=== PATIENT | female | born 1990 | race Caucasian/White ===

== ENCOUNTER 2017-10-11 08:30 | Emergency (ER) | payer SELFPAY ==
--- NOTE | 2017-10-11 08:40 | EDM.PDOC ---
ED HPI GENERAL MEDICAL PROBLEM - General Stated Complaint: SORE MUSCLES Time Seen by Provider: 10/11/17 09:00 - History of Present Illness INITIAL COMMENTS - FREE TEXT/NARRATIVE: HISTORY AND PHYSICAL: History of present illness: The patient is a 26-year-old female who has been followed and worked up by Dr. Richardson in the clinic for abdominal pain and her testing previously included a gallbladder ultrasound on September 26 that was negative a nuclear medicine scan on September 27 which revealed an ejection fraction of 4% and a CT scan of the abdomen and pelvis on September 30 which revealed no findings except for colonic fecal retention; the patient presents to the ER today after being told by Dr. Richardson she needed to be on antibiotics for 2 weeks and then she would eventually need her gallbladder removed. She is currently on levofloxacin and Flagyl. The patient states that her pain in the right upper quadrant is only when she eats and she's been trying to push hydration 8 small meals. Patient said she has had a low-grade fever of 99 and nothing higher than that and has had body aches and chills for the last day or so and all of her joints are hurting her today. She says that she feels like her hands are swollen but they are better currently in the ED and that all of her joints are achy and sore not any one specific joint. Joints are not hot red or swollen but she feels very achy overall. She has been avoiding the heat and has no specific muscle pain. She is not weak in any one specific area but feels drained. She does not have a cough chest pain shortness of breath vomiting but has had loose stools since her gallbladder problems started. She's had no urinary complaints and she denies as she has normal periods and her has a vasectomy. Review of systems: As per history of present illness and below otherwise all systems reviewed and negative. Past medical history: As per history of present illness and as reviewed below otherwise noncontributory. Surgical history: As per history of present illness and as reviewed below otherwise noncontributory. Social history: No reported history of drug or alcohol abuse. Family history: As per history of present illness and as reviewed below otherwise noncontributory. Physical exam: General: Well-developed well-nourished female who is nontoxic and vital signs are reviewed by me. Patient moves easily in the ED without distress. HEENT: Atraumatic, normocephalic, pupils reactive, negative for conjunctival pallor or scleral icterus, mucous membranes moist, throat clear, neck supple, nontender, trachea midline. Lungs: Clear to auscultation, breath sounds equal bilaterally, chest nontender. Heart: S1S2, regular, negative for clicks, rubs, or JVD. Abdomen: Soft, nondistended, minimal tenderness in the right upper quadrant and epigastric area without rebound or guarding. Bowel sounds are hypoactive Negative for masses or hepatosplenomegaly. Negative for costovertebral tenderness. Pelvis: Deferred Genitourinary: Deferred. Rectal: Deferred. Extremities: Atraumatic, negative for cords or calf pain. Neurovascular unremarkable. Knees ankles elbows shoulder joints have all been inspected and there is no visible evidence of any swelling erythema warmth or bony deformities. Patient does have discomfort with palpation of these joints areas but there is no specific one area of discomfort. She can range of motion and move without difficulty or assistance. Neuro: Awake, alert, oriented. Cranial nerves II through XII unremarkable. Cerebellum unremarkable. Motor and sensory unremarkable throughout. Exam nonfocal. Diagnostics: CBC CMP magnesium CPK CRP sedimentation rate UA lactic acid Therapeutics: Patient has allergies to Toradol and tramadol and took Victoria prior to coming here. 1015: Dr. Richardson is aware of all testing results and my clinical findings and the patient was also informed of these testing results and my conversation with Dr. Richardson. I will recommend continuing antibiotics pushing hydration and follow -up with her in the clinic. Impression: Bodyaches/joint pain/malaise with history of biliary dyskinesia stable Definitive disposition and diagnosis as appropriate pending reevaluation and review of above. bodyaches Pain Score (Numeric/FACES): 8 - Related Data Allergies Allergy/AdvReac Type Severity Reaction Status Date / Time aspirin Allergy Anaphylactic Verified 10/11/17 08:44 Shock ketorolac [From Toradol] Allergy Anaphylactic Verified 10/11/17 08:44 Shock morphine Allergy Nausea and Verified 10/11/17 08:44 Vomiting tramadol Allergy Swelling Verified 10/11/17 08:44 Home Meds: Home Meds Hydrocodone/Acetaminophen [Hydrocodon-Acetaminoph 2.5-325] 1 tab PO Q6HR [History] Levofloxacin 750 mg PO BID 10/11/17 [History] Omeprazole 20 mg PO DAILY 10/11/17 [History] metroNIDAZOLE [Flagyl] 1 tab PO Q6HR 10/11/17 [History] ED ROS GENERAL - Review of Systems Review Of Systems: ROS reveals no pertinent complaints other than HPI. ED EXAM, GENERAL - Physical Exam Exam: See Below (See dictation) Course - Vital Signs Last Recorded V/S: Last Vital Signs Temp 36.0 C 10/11/17 08:46 Pulse 87 10/11/17 08:46 Resp 18 10/11/17 08:46 BP 132/81 10/11/17 08:46 Pulse Ox 97 10/11/17 08:46 - Orders/Labs/Meds Orders: Active Orders 24 hr Category Date Time Status UA W/MICROSCOPIC [URIN] Stat Lab 10/11/17 08:37 Ordered Labs: Laboratory Tests 10/11/17 10/11/17 10/11/17 Range/Units 08:37 09:25 09:25 WBC 8.15 (4.0-11.0) K/uL RBC 5.13 (4.30-5.90) M/uL Hgb 15.0 (12.0-16.0) g/dL Hct 44.0 (36.0-46.0) % MCV 85.8 (80.0-98.0) fL MCH 29.2 (27.0-32.0) pg MCHC 34.1 (31.0-37.0) g/dL RDW Std Deviation 42.6 (28.0-62.0) fl RDW Coeff of Jeff 14 (11.0-15.0) % Plt Count 267 (150-400) K/uL MPV 9.70 (7.40-12.00) fL Neut % (Auto) 51.2 (48.0-80.0) % Lymph % (Auto) 37.2 (16.0-40.0) % [place] % (Auto) 9.6 (0.0-15.0) % Eos % (Auto) 1.6 (0.0-7.0) % Baso % (Auto) 0.4 (0.0-1.5) % Neut # (Auto) 4.2 (1.4-5.7) K/uL Lymph # (Auto) 3.0 H (0.6-2.4) K/uL [place] # (Auto) 0.8 (0.0-0.8) K/uL Eos # (Auto) 0.1 (0.0-0.7) K/uL Baso # (Auto) 0.0 (0.0-0.1) K/uL Nucleated RBC % 0.0 /100WBC Nucleated RBCs # 0 K/uL ESR 1 (0-19) mm/hr Lactate (0.20-2.00) mmol/L Sodium 142 (136-145) mmol/L Potassium 3.9 (3.5-5.1) mmol/L Chloride 107 (98-107) mmol/L Carbon Dioxide 25.1 (21.0-32.0) mmol/L BUN 11 (7.0-18.0) mg/dL Creatinine 0.8 (0.6-1.0) mg/dL Est Cr Clr Drug Dosing 90.41 mL/min Estimated GFR (MDRD) > 60.0 ml/min Glucose 93 (74-106) mg/dL Calcium 9.2 (8.5-10.1) mg/dL Magnesium 1.8 (1.8-2.4) mg/dL Total Bilirubin 0.2 (0.2-1.0) mg/dL AST 15 (15-37) IU/L ALT 20 (14-63) IU/L Alkaline Phosphatase 40 L (46-116) U/L Creatine Kinase 55 (26-308) U/L C-Reactive Protein <0.20 (0.00-0.90) mg/dL Total Protein 6.7 (6.4-8.2) g/dL Albumin 3.7 (3.4-5.0) g/dL Globulin 3.0 (2.0-3.5) g/dL Albumin/Globulin Ratio 1.2 L (1.3-2.8) Urine Color YELLOW Urine Appearance SLT CLOUDY Urine pH 6.0 (5.0-8.0) Ur Specific Felda 1.020 (1.001-1.035) Urine Protein NEGATIVE (NEGATIVE) mg/dL Urine Glucose (UA) NEGATIVE (NEGATIVE) mg/dL Urine Ketones NEGATIVE (NEGATIVE) mg/dL Urine Occult Blood SMALL H (NEGATIVE) Urine Nitrite NEGATIVE (NEGATIVE) Urine Bilirubin NEGATIVE (NEGATIVE) Urine Urobilinogen 0.2 (<2.0) EU/dL Ur Leukocyte Esterase NEGATIVE (NEGATIVE) Urine RBC 0-2 (0-2/HPF) Urine WBC 0-2 (0-5/HPF) Ur Epithelial Cells FEW (NONE-FEW) Urine Bacteria FEW (NEGATIVE) Urine Mucus LIGHT (NONE-MOD) 10/11/17 Range/Units 09:25 WBC (4.0-11.0) K/uL RBC (4.30-5.90) M/uL Hgb (12.0-16.0) g/dL Hct (36.0-46.0) % MCV (80.0-98.0) fL MCH (27.0-32.0) pg MCHC (31.0-37.0) g/dL RDW Std Deviation (28.0-62.0) fl RDW Coeff of Jeff (11.0-15.0) % Plt Count (150-400) K/uL MPV (7.40-12.00) fL Neut % (Auto) (48.0-80.0) % Lymph % (Auto) (16.0-40.0) % [place] % (Auto) (0.0-15.0) % Eos % (Auto) (0.0-7.0) % Baso % (Auto) (0.0-1.5) % Neut # (Auto) (1.4-5.7) K/uL Lymph # (Auto) (0.6-2.4) K/uL [place] # (Auto) (0.0-0.8) K/uL Eos # (Auto) (0.0-0.7) K/uL Baso # (Auto) (0.0-0.1) K/uL Nucleated RBC % /100WBC Nucleated RBCs # K/uL ESR (0-19) mm/hr Lactate 1.4 (0.20-2.00) mmol/L Sodium (136-145) mmol/L Potassium (3.5-5.1) mmol/L Chloride (98-107) mmol/L Carbon Dioxide (21.0-32.0) mmol/L BUN (7.0-18.0) mg/dL Creatinine (0.6-1.0) mg/dL Est Cr Clr Drug Dosing mL/min Estimated GFR (MDRD) ml/min Glucose (74-106) mg/dL Calcium (8.5-10.1) mg/dL Magnesium (1.8-2.4) mg/dL Total Bilirubin (0.2-1.0) mg/dL AST (15-37) IU/L ALT (14-63) IU/L Alkaline Phosphatase (46-116) U/L Creatine Kinase (26-308) U/L C-Reactive Protein (0.00-0.90) mg/dL Total Protein (6.4-8.2) g/dL Albumin (3.4-5.0) g/dL Globulin (2.0-3.5) g/dL Albumin/Globulin Ratio (1.3-2.8) Urine Color Urine Appearance Urine pH (5.0-8.0) Ur Specific Felda (1.001-1.035) Urine Protein (NEGATIVE) mg/dL Urine Glucose (UA) (NEGATIVE) mg/dL Urine Ketones (NEGATIVE) mg/dL Urine Occult Blood (NEGATIVE) Urine Nitrite (NEGATIVE) Urine Bilirubin (NEGATIVE) Urine Urobilinogen (<2.0) EU/dL Ur Leukocyte Esterase (NEGATIVE) Urine RBC (0-2/HPF) Urine WBC (0-5/HPF) Ur Epithelial Cells (NONE-FEW) Urine Bacteria (NEGATIVE) Urine Mucus (NONE-MOD) Departure - Departure Time of Disposition: 10:19 Disposition: Home, Self-Care 01 Condition: Good Clinical Impression: Malaise and fatigue Joint pain Qualifiers: Joint pain location: unspecified Qualified Code(s): M25.50 - Pain in unspecified joint - Discharge Information Referrals: Rusty Flores PA [Primary Care Provider] - Additional Instructions: The following information is given to patients seen in the emergency department who are being discharged to home. This information is to outline your options for follow-up care. We provide all patients seen in our emergency department with a follow-up referral. The need for follow-up, as well as the timing and circumstances, are variable depending upon the specifics of your emergency department visit. If you don't have a primary care physician on staff, we will provide you with a referral. We always advise you to contact your personal physician following an emergency department visit to inform them of the circumstance of the visit and for follow-up with them and/or the need for any referrals to a consulting specialist. The emergency department will also refer you to a specialist when appropriate. This referral assures that you have the opportunity for followup care with a specialist. All of these measure are taken in an effort to provide you with optimal care, which includes your followup. Under all circumstances we always encourage you to contact your private physician who remains a resource for coordinating your care. When calling for followup care, please make the office aware that this follow-up is from your recent emergency room visit. If for any reason you are refused follow-up, please contact the [facility] emergency department at and ask to speak to the emergency department charge nurse. [facility] Professional Building [address] [place] [phone] Please contact and follow-up with Dr. Richardson in the clinic and continue taking the antibiotic that you are on until they're finished. Push hydration and try to eat bland bites of food. Return to ER as needed and as discussed. - My Orders Last 24 Hours: My Active Orders 10/11/17 08:37 UA W/MICROSCOPIC [URIN] Stat - Assessment/Plan Last 24 Hours: My Active Orders 10/11/17 08:37 UA W/MICROSCOPIC [URIN] Stat
[2017-10-11 09:54] LABS: CHLORIDE,CL 107 mmol/L (98-107); SODIUM,NA 142 mmol/L (136-145)
== END 2017-10-11 10:31 | disposition home or self-care (01) ==
LOC: MW.ED 08:30
DX: M25.50 Pain in unspecified joint (principal); R53.83 Other fatigue; R53.81 Other malaise; Z79.899 Other long term (current) drug therapy; Z88.6 Allergy status to analgesic agent; Z88.5 Allergy status to narcotic agent
CPT/HCPCS: 36415; 80053; 81001; 82550; 83605; 83735; 85025; 85652; 86140; 99283

== ENCOUNTER 2017-10-27 07:10 | Day surgery (SDC) | payer SELFPAY ==
[~2017-10-27 07:10] MED LIST: Lactated Ringers 1,000 ML IV SCH; Sodium Chloride 0.9% 10 ML Syringe FLUSH PRN; Sodium Chloride 0.9% 2.5 ML Syringe FLUSH PRN; ceFAZolin 2 GM in Premix Bag 1 BAG IV ONE
[2017-10-27] MEDS ORDERED: Propofol 200 MG/20 ML SDV ONE (07:13)
[2017-10-27] MEDS ORDERED: Midazolam 1 MG/ML 2 ML SDV ONE (07:14)
[2017-10-27] MEDS ORDERED: ceFAZolin/Dextrose,Iso-Osmotic 2 GM/50 ML Duplex Bag IV ONE (07:14)
[2017-10-27] MEDS ORDERED: fentaNYL 250 MCG/5 ML SDV ONE (07:14)
[2017-10-27] MEDS ORDERED: Bupivacaine 0.5% 30 ML SDV ONE (07:16)
[2017-10-27] MEDS ORDERED: Lidocaine 2% 5 ML SDV ONE (07:16)
[2017-10-27] MEDS ORDERED: Scopolamine 1.5 MG Transdermal Patch TRDERM PRN (07:34)
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
[2017-10-27] MEDS ORDERED: ePHEDrine 50 MG/ML SDV ONE (08:28)
[2017-10-27] MEDS ORDERED: Glycopyrrolate 0.2 MG/ML SDV ONE (09:33)
[2017-10-27] MEDS ORDERED: Neostigmine Methylsulfate 1 MG/ML 5 ML Syringe ONE (09:34)
--- NOTE | 2017-10-27 09:47 | PCM.OPNOTE ---
- General Post-Op/Procedure Note Date of Surgery/Procedure: 10/27/17 Operative Procedure(s): Laparoscopic cholecystectomy Findings: Normal appearing gallbladder Pre Op Diagnosis: Biliary dyskinesia Post-Op Diagnosis: Same Anesthesia Technique: General ET Tube Primary Surgeon: Elissa Richardson Fluid Replacement, Intraop: 1,100 Output, Urine Amount: 800 EBL in mLs: 10 Condition: Good
[2017-10-27] MEDS ORDERED: Acetaminophen/HYDROcodone 325-5 MG Tab PO PRN (09:51)
[2017-10-27] MEDS ORDERED: Cyclobenzaprine 5 MG Tab PO PRN (09:52)
[2017-10-27] MEDS ORDERED: Ondansetron 4 MG Tab.DIS PO PRN (09:52)
[2017-10-27] MEDS ORDERED: Ondansetron 4 MG/2 ML SDV IVPUSH ONE (09:53)
[2017-10-27] MEDS ORDERED: Ondansetron 4 MG/2 ML SDV ONE ×2 (09:55→09:59)
[2017-10-27] MEDS ORDERED: Promethazine 25 MG/ML SDV IM PRN (10:00)
[2017-10-27] MEDS ORDERED: diphenhydrAMINE 50 MG/ML SDV IVPUSH PRN (10:01)
[2017-10-27] MEDS ORDERED: Promethazine 25 MG/ML SDV ONE (10:06)
--- NOTE | 2017-10-27 10:19 | PCM.POSTAN ---
POST ANESTHESIA ASSESSMENT - MENTAL STATUS Mental Status: Alert, Oriented - RESPIRATORY Respiratory Status: Respiratory Rate WNL, Airway Patent, O2 Saturation Stable - CARDIOVASCULAR CV Status: Pulse Rate WNL, Blood Pressure Stable - GASTROINTESTINAL GI Status: No Symptoms - PAIN Pain Score: 8 (Pt refusing pain medication because she wants to get up and go to the bathroom) - POST OP HYDRATION Hydration Status: Adequate & Stable - OBSERVATIONS Free Text/Narrative:: Pt stable for tx back to phase II - does not want pain medication at this time - wanting to go back to her room and get up to go to the bathroom. Nausea resolved after IV zofran in PACU.
--- NOTE | 2017-10-27 10:55 | PCM48HPAN ---
Post Anesthesia Note - EVALUATION WITHIN 48HRS OF ANESTHETIC Vital Signs in Normal Range: Yes Patient Participated in Evaluation: Yes Respiratory Function Stable: Yes Airway Patent: Yes Cardiovascular Function Stable: Yes Hydration Status Stable: Yes Pain Control Satisfactory: Yes Nausea and Vomiting Control Satisfactory: Yes Mental Status Recovered: Yes Resp Rate: 15 - COMMENTS/OBSERVATIONS Free Text/Narrative:: no nausea, no pain, asking to be released to home with .
--- NOTE | 2017-10-27 13:27 | OR ---
SURGEON: FRAN DENIS MD DATE OF PROCEDURE: 10/27/2017 PREOPERATIVE DIAGNOSIS: Biliary dyskinesia. POSTOPERATIVE DIAGNOSIS: Biliary dyskinesia. PROCEDURE PERFORMED: Laparoscopic cholecystectomy. ANESTHESIA: General endotracheal anesthesia. FLUIDS: 1100 mL of crystalloid. URINE OUTPUT: 800 mL. ESTIMATED BLOOD LOSS: 10 mL. FINDINGS: Normal-appearing gallbladder with minimal adhesions to the duodenum. COMPLICATIONS: None. INDICATIONS: The patient is a 27-year-old female, who presented with postprandial nausea, vomiting, abdominal pain. The patient had a HIDA scan performed that showed biliary dyskinesia. I explained the pathophysiology of biliary disease. I explained the treatment for biliary dyskinesia, which is removal of the gallbladder. I explained the laparoscopic and open approaches. Should I be unable to perform this laparoscopically, we will convert it to open. The patient and I discussed the expected perioperative course as well as the risks including bleeding, infection, or damage to surrounding structures. The patient verbalized understanding and wishes to proceed. PROCEDURE IN DETAIL: The patient was brought to the OR and placed on the OR table in supine position. A time-out was completed verifying the patient's name, age, date of , allergies, and procedure to be performed. General endotracheal anesthesia was induced. The left arm was tucked to the patient's side and a Gaxiola catheter placed. The abdomen was prepped and draped in usual sterile fashion. I anesthetized the infraumbilical fold with 0.5% Marcaine plain. An 11 blade was used to make an incision along the infraumbilical fold along a previous scar. Cautery was used to then dissect down into the layer of the subcutaneous fat. S retractors were used to dissect down to the level of fascia. The fascia was elevated with Luis's and incised sharply with Metzenbaum scissors. I then identified the peritoneum. This was elevated with hemostats and incised sharply with the Metzenbaum scissors. Entry into the abdomen was palpated. A 12 mm Jim trocar was placed in the abdomen. The abdomen was insufflated. A 5 mm 30-degree scope was inserted in the abdomen. I inspected the area underneath my initial trocar placement and no damage to surrounding structures was noted. The patient was placed into reverse Trendelenburg position and airplane slightly to the left. Three 5 mm trocars were placed under direct visualization in the following locations, one in the epigastric area, one in the right flank, and one along the right subcostal margin, and one 2 fingerbreadths below the right subcostal margin in the midclavicular line. The dome of the gallbladder was grasped and elevated above the liver. The body of the gallbladder appeared to be more medial. I grasped the infundibulum and started to dissect the gallbladder free of its surrounding attachments. There were wispy adhesions to the duodenum. These were carefully taken down with blunt dissection and hook cautery. The tissue surrounding the cystic duct and artery were dissected away using gentle blunt dissection and hook cautery. Given the medial location of the body of the gallbladder, I had some difficulty completely clearing away the cystic duct and artery. A decision was made to place four 5 mm trocar in the right upper quadrant. This was performed under direct visualization. Once this was performed, I was then able to get better angle and completely dissect free my cystic duct and artery and achieve my critical view. The cystic duct and artery were doubly clipped and ligated. The gallbladder was removed from the gallbladder fossa using hook cautery. Once the gallbladder was free, was placed in an EndoCatch bag and removed through the infraumbilical port site. The 12 mm Jim trocar was placed back in the abdomen and I inspected my operative field. A small superficial tear was made along the lateral aspect of the liver. Bleeding was controlled using cautery. The remainder of the field appeared hemostatic and there was no evidence of any bile leakage. I irrigated the abdomen copiously with normal saline and suctioned it out. The 5 mm trocars were then removed under direct visualization and the abdomen allowed to desufflate. The 12 mm Jim trocar was removed. The fascia at the infraumbilical port site was closed with interrupted 0 Vicryl sutures. The subcutaneous fat was closed using interrupted 3-0 Vicryl sutures. The skin around the umbilicus was closed with interrupted 4-0 Vicryl sutures. The 5 mm trocar sites were closed with interrupted 4-0 Monocryl suture. Steri-Strips and sterile dressings were applied. The patient tolerated the procedure well and was taken to PACU in stable condition. ERIN DUQUE /[id number]
== END 2017-10-27 11:00 | disposition home or self-care (01) ==
LOC: MW.SDS 07:10
PROVIDERS: ATTEND Surgery
DX: K81.1 Chronic cholecystitis (principal); F17.210 Nicotine dependence, cigarettes, uncomplicated; Z79.899 Other long term (current) drug therapy; Z88.1 Allergy status to other antibiotic agents; Z88.5 Allergy status to narcotic agent; Z88.6 Allergy status to analgesic agent; Z91.048 Other nonmedicinal substance allergy status; Z83.79 Family history of other diseases of the digestive system
CPT/HCPCS: 47562; 81025; A9270; J2250; J3010; J7120; J0690; J2704

== ENCOUNTER 2017-10-29 11:49 | Emergency (ER) | payer SELFPAY ==
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
== END 2017-10-29 12:44 | disposition home or self-care (01) ==
LOC: MW.ED 11:49
DX: Z48.01 Encounter for change or removal of surgical wound dressing (principal); J45.909 Unspecified asthma, uncomplicated; F17.210 Nicotine dependence, cigarettes, uncomplicated; Z88.6 Allergy status to analgesic agent; Z88.5 Allergy status to narcotic agent; Z79.899 Other long term (current) drug therapy
CPT/HCPCS: 99282

== ENCOUNTER 2018-01-04 13:04 | Emergency (ER) | payer SELFPAY ==
[2018-01-04] MEDS ORDERED: Ketorolac 30 MG/ML SDV IVPUSH ONE (13:15)
[2018-01-04] MEDS ORDERED: Sodium Chloride 0.9% 10 ML Syringe FLUSH PRN (13:15)
[2018-01-04] MEDS ORDERED: Sodium Chloride 0.9% 2.5 ML Syringe FLUSH PRN (13:15)
[2018-01-04 14:09] LABS: CHLORIDE,CL 105 mmol/L (98-107); SODIUM,NA 142 mmol/L (136-145)
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
--- NOTE | 2018-01-04 14:52 | CR ---
EXAMINATION: Two-view chest (PA and Lateral views). HISTORY: Shortness of breath. FINDINGS: The trachea is midline. The cardiomediastinal silhouette is within normal limits. A trace right basil ar infiltrate is not excluded. No pleural effusion or pneumothorax. Osseous structures appear unremarkable. IMPRESSION: Possible trace right basilar atelectasis/infiltrate.
[2018-01-04] MEDS ORDERED: cefTRIAXone 1 GM in Premix Bag 1 BAG IV ONE (15:00)
== END 2018-01-04 15:40 | disposition home or self-care (01) ==
LOC: MW.ED 13:04
DX: J18.9 Pneumonia, unspecified organism (principal); Z88.5 Allergy status to narcotic agent; Z88.6 Allergy status to analgesic agent; Z88.8 Allergy status to other drugs, medicaments and biological substances; F17.210 Nicotine dependence, cigarettes, uncomplicated; Z91.09 Other allergy status, other than to drugs and biological substances
CPT/HCPCS: 36415; 71046; 80053; 81001; 81025; 85025; 85379; 87040; 96365; 99284; J0696; 93005; 99283

== ENCOUNTER 2018-05-18 07:31 | Day surgery (SDC) | payer BC ==
[~2018-05-18 07:31] MED LIST changes: -ceFAZolin 2 GM in Premix Bag 1 BAG IV ONE; +cefOXitin 2 GM in Premix Bag 1 BAG IV ONE
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
[2018-05-18] MEDS ORDERED: Midazolam 1 MG/ML 2 ML SDV ONE (09:02)
[2018-05-18] MEDS ORDERED: Ondansetron 4 MG/2 ML SDV ONE (09:03)
[2018-05-18] MEDS ORDERED: fentaNYL 100 MCG/2 ML SDV ONE (09:03)
[2018-05-18] MEDS ORDERED: Propofol 200 MG/20 ML SDV ONE ×4 (09:05→10:28)
[2018-05-18] MEDS ORDERED: Lidocaine 1% 20 ML MDV ONE (09:17)
[2018-05-18] MEDS ORDERED: cefOXitin 100 ML ONE (09:17)
[2018-05-18] MEDS ORDERED: ePHEDrine 50 MG/ML SDV ONE (09:44)
--- NOTE | 2018-05-18 10:26 | PCM.POSTAN ---
POST ANESTHESIA ASSESSMENT - MENTAL STATUS Mental Status: Alert, Oriented - RESPIRATORY Respiratory Status: Respiratory Rate WNL, Airway Patent, O2 Saturation Stable - CARDIOVASCULAR CV Status: Pulse Rate WNL, Blood Pressure Stable - GASTROINTESTINAL GI Status: No Symptoms - POST OP HYDRATION Hydration Status: Adequate & Stable - OBSERVATIONS Free Text/Narrative:: no anesthesia problems
--- NOTE | 2018-05-18 10:29 | PCM.OPNOTE ---
- General Post-Op/Procedure Note Date of Surgery/Procedure: 05/18/18 Operative Procedure(s): Diagnostic EGD and excision of umbilical skin lesion Findings: Hiatal hernia, small skin lesion on right side of umbilical skin Pre Op Diagnosis: H pylori infection, umbilical skin lesion Post-Op Diagnosis: Hiatal hernia, H pylori infection, umbilical skin lesion Anesthesia Technique: MAC Primary Surgeon: Elissa Richardson EBL in mLs: 3 Condition: Good Free Text/Narrative:: Intake & Output 05/17/18 05/18/18 05/18/18 22:59 06:59 14:59 Intake Total 800 Balance 800
[2018-05-18] MEDS ORDERED: fentaNYL 100 MCG/2 ML SDV IVPUSH PRN (10:42)
[2018-05-18] MEDS ORDERED: Acetaminophen/oxyCODONE 325-5 MG Tab ONE (10:43)
[2018-05-18] MEDS ORDERED: Acetaminophen/oxyCODONE 325-5 MG Tab PO ONE (10:44)
--- NOTE | 2018-05-18 11:22 | PCM48HPAN ---
Post Anesthesia Note - EVALUATION WITHIN 48HRS OF ANESTHETIC Vital Signs in Normal Range: Yes Patient Participated in Evaluation: Yes Respiratory Function Stable: Yes Airway Patent: Yes Cardiovascular Function Stable: Yes Hydration Status Stable: Yes Pain Control Satisfactory: Yes Nausea and Vomiting Control Satisfactory: Yes Pulse Rate: 98 SaO2: 97 Resp Rate: 16 Temperature: 36.7 C Blood Pressure: 143/73 - COMMENTS/OBSERVATIONS Free Text/Narrative:: awake, alert, vitals stable. Ate yogurt, drank water. Pain is much better and very tolerable. No nausea. Ready to go home with . Good post op phase II recovery without any untoward events.
--- NOTE | 2018-05-19 12:45 | OR ---
SURGEON: FRAN DENIS MD DATE OF PROCEDURE: 05/18/2018 PREOPERATIVE DIAGNOSES: 1. Umbilical lesion. 2. Helicobacter pylori infection. POSTOPERATIVE DIAGNOSES: 1. Umbilical lesion. 2. Hiatal hernia. 3. Helicobacter pylori infection. PROCEDURES PERFORMED: 1. Excision of umbilical lesion. 2. Diagnostic esophagogastroduodenoscopy with biopsies. ANESTHESIA: MAC, local. FLUIDS: See anesthesia record. ESTIMATED BLOOD LOSS: 3 mL. FINDINGS: A small umbilical lesion along the right lateral umbilical fold. Hiatal hernia found during EGD. COMPLICATIONS: None. INDICATIONS: The patient is a 27-year-old female who complains of tenderness and drainage from her umbilicus since her previous laparoscopic cholecystectomy. On physical exam, she has a tender small umbilical skin lesion on the right side. The decision was made to explore this further in the operating room and excise it. She also complained of severe epigastric pain. An H. pylori antigen test was performed, which was positive. She started the medication, but I explained the need for a diagnostic EGD. I explained both procedures, their expected perioperative course, and the risks. The risks of the removing this umbilical skin lesion involves bleeding and infection. The risks of the EGD include bleeding or perforation. The patient verbalized understanding and wishes to proceed. PROCEDURE IN DETAIL: The patient was brought into the OR and placed on the OR table in supine position. A time-out was completed verifying the patient's name, age, date of , allergies, and procedure to be performed. Monitored anesthesia care was induced. The abdomen was prepped and draped in usual sterile usual standard fashion. I anesthetized the area around the umbilicus with 1% lidocaine plain. I then used retractors to look down towards the stalk of the umbilicus. Along the right infraumbilical fold, was then irritated area with a small ulcerated lesion. This measured approximately 1 mm in size. The decision was made to excise this. Using a 15 blade, I made a ezequiel shaped incision around the lesion. I then undermined this using needle-tip cautery. The skin lesion was removed and placed on the back table, it measured 5 mm x 5 mm x 2 mm in depth. The soft tissues underneath the skin lesion appeared normal with no evidence of fistulization. Hemostasis was achieved with cautery. The wound was then closed with interrupted 3-0 Ethilon sutures. Bacitracin and sterile dressings were applied. I then turned my attention to the EGD portion of the case. A bite block had been placed in the patient's mouth. A well lubricated endoscope was placed in the patient's mouth and advanced under direct visualization to the second portion of the duodenum. This appeared normal and a photograph was taken. The scope was then fully withdrawn while examining the color, texture, anatomy, and integrity mucosa of the upper GI tract. The duodenum appeared normal. The scope was brought into the stomach and a photograph was taken of the pylorus as well as with the scope retroflexed to view the GE junction. The patient was noted to have a small hiatal hernia. The gastric mucosa itself did not have any gross inflammation or ulceration. Biopsies were taken of the gastric antrum, body, and fundus and sent for histologic review and H. pylori testing. The scope was then brought into the hiatal hernia sac. There was no evidence of any Jas ulcers and a photograph was taken. The scope was then brought above the GE junction. The esophageal mucosa appeared normal and a photograph was taken. The remainder of the esophagus was free of pathology. The scope was removed and the procedure terminated. The patient tolerated the procedure well and was taken to PACU in stable condition. ERIN DUQUE /[id number]
== END 2018-05-18 11:52 | disposition home or self-care (01) ==
LOC: MW.SDS 07:31
PROVIDERS: ATTEND Surgery
DX: K29.50 Unspecified chronic gastritis without bleeding (principal); B96.81 Helicobacter pylori [H. pylori] as the cause of diseases classified elsewhere; L90.5 Scar conditions and fibrosis of skin; J45.909 Unspecified asthma, uncomplicated; E66.3 Overweight; Z68.31 Body mass index [BMI] 31.0-31.9, adult; K21.9 Gastro-esophageal reflux disease without esophagitis; Z87.891 Personal history of nicotine dependence; Z79.899 Other long term (current) drug therapy; Z90.49 Acquired absence of other specified parts of digestive tract; Z91.048 Other nonmedicinal substance allergy status; Z88.6 Allergy status to analgesic agent; Z88.5 Allergy status to narcotic agent; Z88.1 Allergy status to other antibiotic agents
CPT/HCPCS: 11400; 43239; 88305; 88312; A9270; J0694; J2250; J2405; J2704; J3010; J7120; 00731

== ENCOUNTER 2018-08-10 17:47 | Emergency (ER) | payer BC ==
[2018-08-10] MEDS ORDERED: Sodium Chloride 0.9% 1,000 ML IV ONE (18:10)
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
[2018-08-10] MEDS ORDERED: LORazepam 2 MG/ML SDV IVPUSH ONE (18:32)
[2018-08-10 19:10] LABS: CHLORIDE,CL 107 mmol/L (98-107); SODIUM,NA 142 mmol/L (136-145)
--- NOTE | 2018-08-10 19:49 | CT ---
INDICATION: Near syncope, dizziness TECHNIQUE: CT head without contrast. COMPARISON: None available FINDINGS: The ventricles are in proportion to the cortical sulci and consistent with patient`s stated age. Negative for acute intracranial hemorrhage, extra-axial fluid collection or midline shift. The feldman-white matter junction is distinct. The basal cisterns are intact. The bony calvarium is intact. The visualized paranasal sinuses and mastoid air cells are clear. IMPRESSION: Unremarkable noncontrast CT examination of the head. If symptoms persist consider MRI examination of the brain. Dictated by Anaya Ramirez MD @ 08/10/2018 7:48:26 PM Please note that all CT scans at this facility use dose modulation, iterative reconstruction, and/or weight-based dosing when appropriate to reduce radiation dose to as low as reasonably achievable. Dictated by: Anaya Ramirez MD @ 08/10/2018 19:48:38 (Electronically Signed)
== END 2018-08-10 20:18 | disposition home or self-care (01) ==
LOC: MW.ED 17:50
DX: R42 Dizziness and giddiness (principal); J45.909 Unspecified asthma, uncomplicated; Z88.8 Allergy status to other drugs, medicaments and biological substances; Z88.5 Allergy status to narcotic agent; Z79.899 Other long term (current) drug therapy
CPT/HCPCS: 36415; 70450; 80053; 81001; 81025; 84484; 85025; 93005; 96361; 96374; 99284; J2060; J7040

== ENCOUNTER 2018-10-24 08:45 | Emergency (ER) | payer BC ==
[2018-10-24] MEDS ORDERED: Alum Hydrox/Mag Hydrox/Simeth 15 ML, Metoclopramide 5 MG, Lidocaine 2% 5 ML PO ONE ×3 (09:03)
[2018-10-24] MEDS ORDERED: Sodium Chloride 0.9% 1,000 ML IV ONE (09:05)
[2018-10-24] MEDS ORDERED: HYDROmorphone 2 MG/ML Syringe IVPUSH ONE (09:05)
[2018-10-24] MEDS ORDERED: Ondansetron 4 MG/2 ML SDV IVPUSH ONE (09:33)
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
[2018-10-24 10:09] LABS: CHLORIDE,CL 106 mmol/L (98-107); SODIUM,NA 140 mmol/L (136-145)
[2018-10-24] MEDS ORDERED: Iopamidol 755 MG/ML 500 ML Multipack Bottle IVPUSH STA (10:36)
--- NOTE | 2018-10-24 10:38 | CR ---
EXAMINATION: Two-view chest (PA and Lateral views). HISTORY: Shortness of breath. COMPARISON: 01/04/2018. FINDINGS: The trachea is midline. The cardiomediastinal silhouette is within normal limits. No pulmonary infiltrates, effusions or pneumothorax. Osseous structures appear unremarkable. IMPRESSION: No acute cardiopulmonary process.
--- NOTE | 2018-10-24 11:24 | CT ---
CT of the abdomen and pelvis with contrast. HISTORY: Pain TECHNIQUE: Axial CT images were obtained of the abdomen and pelvis following administration of 100 mL of Isovue-370 in the left antecubital fossa without complication. Coronal and sagittal reconstructions obtained. FINDINGS: The lung bases are clear. Old right-sided rib fractures. The liver, spleen, adrenal glands, pancreas appear normal. Cholecystectomy clips are noted. No bulky retroperitoneal lymphadenopathy or abdominal ascites. The kidneys enhance and function symmetrically without evidence of obstructive uropathy. The large and small bowel are normal in caliber without evidence of obstruction. No focal pericolonic inflammation or stranding. Appendix is normal. Small amount of free pelvic fluid is noted. There is likely an involuting 2.1 cm right ovarian cyst. No bulky pelvic lymphadenopathy. No suspicious osseous abnormalities identified. IMPRESSION: 1. No definite acute findings noted within the abdomen or pelvis.
== END 2018-10-24 12:05 | disposition home or self-care (01) ==
LOC: MW.ED 08:45
DX: K21.9 Gastro-esophageal reflux disease without esophagitis (principal); J45.909 Unspecified asthma, uncomplicated; Z88.6 Allergy status to analgesic agent; Z88.1 Allergy status to other antibiotic agents; Z88.8 Allergy status to other drugs, medicaments and biological substances; Z79.899 Other long term (current) drug therapy; Z87.891 Personal history of nicotine dependence
CPT/HCPCS: 36415; 71046; 74177; 80053; 83690; 84484; 84703; 85025; 93005; 96361; 96374; 99285; A9270; J1170; J7040; Q9967

== ENCOUNTER 2018-11-25 12:59 | Emergency (ER) | payer BC, OTHER ==
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
--- NOTE | 2018-11-25 13:40 | CR ---
Indication: Injury. Pain. Technique: Three views of the right wrist were obtained. Comparison: None Findings: No acute fracture or subluxation is identified. The joint spaces are well maintained. Impression: No acute fracture. Dictated by Tracy Benjamin MD @ Nov 25 2018 1:39PM Signed by Dr. Tracy Benjamin @ Nov 25 2018 1:40PM
== END 2018-11-25 14:03 | disposition home or self-care (01) ==
LOC: MW.ED 12:59
DX: S69.91XA Unspecified injury of right wrist, hand and finger(s), initial encounter (principal); J45.909 Unspecified asthma, uncomplicated; Z79.899 Other long term (current) drug therapy; Z88.6 Allergy status to analgesic agent; Z88.5 Allergy status to narcotic agent; Z88.8 Allergy status to other drugs, medicaments and biological substances; X50.0XXA Overexertion from strenuous movement or load, initial encounter; Y99.0 Civilian activity done for income or pay
CPT/HCPCS: 73110-26-RT; 73110-RT; 99283; 99283-25

== ENCOUNTER 2019-03-08 08:25 | Emergency (ER) | payer BC ==
[2019-03-08] MEDS ORDERED: Sodium Chloride 0.9% 10 ML Syringe FLUSH PRN (08:47)
[2019-03-08] MEDS ORDERED: HYDROmorphone 1 MG/ML Syringe IVPUSH ONE (08:47)
[2019-03-08] MEDS ORDERED: Ondansetron 4 MG/2 ML SDV IVPUSH ONE (08:47)
[2019-03-08] MEDS ORDERED: Sodium Chloride 0.9% 1,000 ML IV ONE (08:47)
[2019-03-08] MEDS ORDERED: Sodium Chloride 0.9% 2.5 ML Syringe FLUSH PRN (08:47)
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
[2019-03-08] MEDS ORDERED: Pantoprazole 40 MG Vial IVPUSH ONE (09:08)
[2019-03-08 09:47] LABS: BLOOD UREA NITROGEN,BUN 11 mg/dL (7.0-18.0); CARBON DIOXIDE,CO2 26.9 mmol/L (21.0-32.0); CHLORIDE,CL 102 mmol/L (98-107); GLUCOSE RANDOM 103 mg/dL (74-106); LIPASE 90 U/L (73-393); POTASSIUM,K 3.4 mmol/L (3.5-5.1); SODIUM,NA 139 mmol/L (136-145)
[2019-03-08] MEDS ORDERED: Iopamidol 755 MG/ML 500 ML Multipack Bottle IVPUSH STA (10:23)
--- NOTE | 2019-03-08 10:56 | CT ---
EXAM DATE: 03/08/19 PATIENT'S AGE: 28 CT abdomen and pelvis Technique: Multiple axial sections were obtained from above the dome of the diaphragm inferiorly through the pubic symphysis. Intravenous contrast was utilized. No oral contrast has been given. Comparison: Prior CT abdomen and pelvis exam of 10/24/18. Findings: Old rib fractures are seen posteriorly on the right side. Visualized lung bases show nothing acute. Liver shows no focal parenchymal abnormality. Spleen appears within normal limits. Surgical clips are seen from prior cholecystectomy. Adrenal glands show no nodule. Pancreas is within normal limits. Kidneys show symmetric contrast enhancement without hydronephrosis or mass. Aorta shows no aneurysm. No retroperitoneal adenopathy or mesenteric abnormalities are seen. No pelvic mass or adenopathy is identified. No free fluid or inflammatory change is seen. Appendix is felt to be visualized and is normal in size. Bone window settings shows nothing acute within the visualized osseous structures. Impression: 1. Incidental findings. 2. Nothing acute is appreciated on CT study of the abdomen and pelvis. 3. No significant change is seen from previous CT exam. Diagnostic code #2 Report Signed by Proxy. PARAMJIT
--- NOTE | 2019-03-08 10:57 | CR ---
EXAM DATE: 03/08/19 PATIENT'S AGE: 28 Chest: Portable view of the chest was obtained. Comparison: Prior chest x-ray of 10/24/18. Patchy increased density within the right lung base is noted. Lungs otherwise are clear. Heart size and mediastinum are normal. Bony structures are within normal limits for the patient's age. Incidental mild scoliosis is noted. Impression: 1. Slight parenchymal density within the right lung base possibly due to minimal area of pneumonia. 2. No other acute abnormality is seen within the chest. Diagnostic code #3 Report Signed by Proxy. MTDD
[2019-03-08] MEDS ORDERED: fentaNYL 50 MCG/ML SDV IVPUSH ONE (11:19)
[2019-03-08] MEDS ORDERED: fentaNYL 100 MCG/2 ML SDV ONE (11:23)
== END 2019-03-08 12:17 | disposition home or self-care (01) ==
LOC: MW.ED 08:25
DX: R10.13 Epigastric pain (principal); J18.9 Pneumonia, unspecified organism; K21.9 Gastro-esophageal reflux disease without esophagitis; J45.909 Unspecified asthma, uncomplicated; Z90.49 Acquired absence of other specified parts of digestive tract; Z79.899 Other long term (current) drug therapy; Z91.048 Other nonmedicinal substance allergy status; Z88.6 Allergy status to analgesic agent; Z88.5 Allergy status to narcotic agent; Z88.8 Allergy status to other drugs, medicaments and biological substances
CPT/HCPCS: 36415; 71045; 74177; 80053; 81001; 82150; 83605; 83690; 85025; 96361; 96374; 96375; 99284; C9113; J1170; J2405; J3010; J7040; Q9967; J7030

== ENCOUNTER 2019-05-01 01:59 | Emergency (ER) | payer BC ==
[2019-05-01] MEDS ORDERED: diazePAM 5 MG/ML MDV IV ONE (02:18)
[2019-05-01] MEDS ORDERED: Ondansetron 4 MG/2 ML SDV IVPUSH ONE (02:18)
[2019-05-01] MEDS ORDERED: Sodium Chloride 0.9% 1,000 ML IV ONE ×2 (02:18→03:58)
[2019-05-01] MEDS ORDERED: HYDROmorphone 1 MG/ML Syringe IVPUSH ONE (02:18)
[2019-05-01 02:42] LABS: BLOOD UREA NITROGEN,BUN 15 mg/dL (7.0-18.0); CARBON DIOXIDE,CO2 27.4 mmol/L (21.0-32.0); CHLORIDE,CL 101 mmol/L (98-107); GLUCOSE RANDOM 99 mg/dL (74-106); POTASSIUM,K 3.5 mmol/L (3.5-5.1); SODIUM,NA 139 mmol/L (136-145)
[2019-05-01] MEDS ORDERED: HYDROmorphone 1 MG/ML Syringe IVPUSH PRN (02:53)
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
--- NOTE | 2019-05-01 03:46 | CT ---
INDICATION: Severe epigastric pain. TECHNIQUE: CT Abdomen and pelvis without i.v. contrast. Coronal and sagittal reformats were obtained. COMPARISON: 03/08/2019 FINDINGS: Lower chest: There is a 5 mm nodule abutting the right minor fissure on image 6 and a subpleural nodule in the anterior right lower lobe on image 16. These are unchanged from prior examination. Liver: Unremarkable. Spleen: Unremarkable. Pancreas: Unremarkable. Gallbladder: Previous cholecystectomy noted without significant intra- or extrahepatic biliary ductal dilatation seen. Kidney: Unremarkable. No kidney or ureteral stones or obstruction seen. Adrenal: Unremarkable. Bowel: Unremarkable. The appendix cannot be identified but there are no inflammatory changes noted in the right lower quadrant. Vascular: Unremarkable. Lymph: Unremarkable. Peritoneum: Unremarkable. No pneumoperitoneum is seen. No significant ascites is noted. Pelvis: Unremarkable. Soft tissue: Unremarkable. Bone: Chronic right posterior rib fractures are noted without change. A ghost track is seen within the visualized proximal left femur from previous instrumentation. IMPRESSION: 1. Unremarkable with no CT correlate for the patient`s symptoms seen. Dictated by Joshua Hu MD @ 05/01/2019 3:45:52 AM Please note that all CT scans at this facility use dose modulation, iterative reconstruction, and/or weight-based dosing when appropriate to reduce radiation dose to as low as reasonably achievable. Dictated by: Joshua Hu MD @ 05/01/2019 03:46:00 (Electronically Signed)
[2019-05-01] MEDS ORDERED: Prochlorperazine 10 MG in Sodium Chloride 0.9% 50 ML IV ONE (03:56)
[2019-05-01] MEDS ORDERED: diphenhydrAMINE 50 MG/ML SDV IVPUSH ONE (03:57)
[2019-05-01] MEDS ORDERED: Alum Hydrox/Mag Hydrox/Simeth 15 ML, Lidocaine 2% 5 ML PO ONE ×2 (04:24)
== END 2019-05-01 05:29 | disposition home or self-care (01) ==
LOC: MW.ED 01:59
DX: K52.9 Noninfective gastroenteritis and colitis, unspecified (principal); K31.89 Other diseases of stomach and duodenum; Z88.6 Allergy status to analgesic agent; Z88.8 Allergy status to other drugs, medicaments and biological substances; Z88.5 Allergy status to narcotic agent; Z91.09 Other allergy status, other than to drugs and biological substances; J45.909 Unspecified asthma, uncomplicated; Z79.899 Other long term (current) drug therapy; Z90.49 Acquired absence of other specified parts of digestive tract; Z87.891 Personal history of nicotine dependence
CPT/HCPCS: 36415; 74176; 80053; 81001; 81025; 85025; 96361; 96365; 96375; 96376; 99284; A9270; J0780; J1170; J1200; J2405; J3360; J7030; J7050

== ENCOUNTER 2019-05-10 23:16 | Emergency (ER) | payer BC ==
[2019-05-10] MEDS ORDERED: fentaNYL 50 MCG/ML SDV IVPUSH ONE (23:24)
[2019-05-10] MEDS: fentaNYL 100 MCG/2 ML SDV ONE (23:41)
[2019-05-10] MEDS: fentaNYL 100 MCG/2 ML SDV IVPUSH STA ×2 (23:44→23:45)
[2019-05-10 23:48] LABS: BLOOD UREA NITROGEN,BUN 10 mg/dL (7.0-18.0); CARBON DIOXIDE,CO2 22.7 mmol/L (21.0-32.0); CHLORIDE,CL 104 mmol/L (98-107); GLUCOSE RANDOM 115 mg/dL (74-106); POTASSIUM,K 4.4 mmol/L (3.5-5.1); SODIUM,NA 138 mmol/L (136-145)
[2019-05-11] MEDS: fentaNYL 100 MCG/2 ML SDV ONE (00:45)
--- NOTE | 2019-05-11 00:45 | CR ---
INDICATION: Pt fell, c/o rt sided pain. TECHNIQUE: Chest 1 view. COMPARISON: 03/08/19 FINDINGS: Cardiovascular and mediastinum: Heart size and vasculature are normal in caliber and appearance. Mediastinum is within normal limits. Lungs and pleural space: Lungs are clear. No sign of infiltrate or mass. No sign of pleural effusion. No pneumothorax. Bones and soft tissues: No significant findings. IMPRESSION: Unremarkable chest. Dictated by: Sb Joe MD @ 05/11/2019 00:43:14 (Electronically Signed)
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
--- NOTE | 2019-05-11 01:02 | CR ---
INDICATION: Ascites in the TECHNIQUE: AP pelvis and two views right hip COMPARISON: None FINDINGS: Bones: Alignment is normal. No fractures or bone lesions. Joint spaces: Unremarkable. Soft tissues: Unremarkable. IMPRESSION: No evidence of acute trauma. Dictated by Sb Joe MD @ 05/11/2019 1:01:23 AM Dictated by: Sb Joe MD @ 05/11/2019 01:01:34 (Electronically Signed)
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
--- NOTE | 2019-05-11 01:06 | CT ---
INDICATION: Fall TECHNIQUE: CT head without contrast. COMPARISON: 08/10/2018 FINDINGS: CSF spaces: Within normal limits for age. Brain parenchyma: The feldman-white differentiation is normal. No sign of mass, hemorrhage, or midline shift. Skull base and calvarium: The visualized paranasal sinuses and mastoid air cells demonstrate no acute or significant findings. The visualized orbits are grossly unremarkable. No skull fractures. IMPRESSION: Unremarkable noncontrast head CT. Dictated by Sb Joe MD @ 05/11/2019 1:04:41 AM Please note that all CT scans at this facility use dose modulation, iterative reconstruction, and/or weight-based dosing when appropriate to reduce radiation dose to as low as reasonably achievable. Dictated by: Sb Joe MD @ 05/11/2019 01:04:46 (Electronically Signed)
== END 2019-05-11 01:30 | disposition home or self-care (01) ==
LOC: MW.ED 23:16
DX: S00.03XA Contusion of scalp, initial encounter (principal); S70.01XA Contusion of right hip, initial encounter; S20.211A Contusion of right front wall of thorax, initial encounter; Z88.5 Allergy status to narcotic agent; Z88.6 Allergy status to analgesic agent; Z91.09 Other allergy status, other than to drugs and biological substances; J45.909 Unspecified asthma, uncomplicated; Z79.899 Other long term (current) drug therapy; Z98.890 Other specified postprocedural states; Z90.49 Acquired absence of other specified parts of digestive tract; Z87.891 Personal history of nicotine dependence; W10.9XXA Fall (on) (from) unspecified stairs and steps, initial encounter
CPT/HCPCS: 36415; 70450; 71045; 72125; 73502; 80048; 84703; 85025; 96374; 99284; J3010

== ENCOUNTER 2020-01-26 13:36 | Emergency (ER) | payer BC | END 2020-01-26 13:51 | disposition left against medical advice (07) | LOC: MW.ED 13:36 | DX: Z53.21 Procedure and treatment not carried out due to patient leaving prior to being seen by health care provider (principal) ==

== ENCOUNTER 2020-09-24 02:10 | Emergency (ER) | payer BC ==
[2020-09-24] MEDS ORDERED: Magnesium Sulfate/Water 2 GM in Premix Bag 1 BAG IV ONE (02:18)
[2020-09-24] MEDS ORDERED: methylPREDNISolone Sodium Succinate 40 MG/1 ML SDV IVPUSH ONE (02:21)
[2020-09-24] MEDS ORDERED: Albuterol 0.083% 2.5 MG/3 ML Neb Soln NEB ONE (02:21)
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
[2020-09-24] MEDS ORDERED: Ondansetron 4 MG/2 ML SDV IVPUSH ONE (02:52)
[2020-09-24] MEDS ORDERED: Ondansetron 4 MG/2 ML SDV ONE (02:53)
--- NOTE | 2020-09-24 04:42 | CR ---
For Patients: As a result of the Century Cures Act, medical imaging exams and procedure reports are released immediately into your electronic medical record. You may view this report before your referring provider. If you have questions, please contact your health care provider. INDICATION: Ten shortness breath COMPARISON: Portable chest from 05/11/2019 FINDINGS: PA and lateral views of the chest were obtained. The lungs remain clear. No focal or diffuse infiltrates are present. The heart remains normal in size. The mediastinum is normal in appearance. The osseous structures are normal in appearance for the patient`s age. IMPRESSION: Normal chest two views. Dictated by Brooks Gil MD @ 09/24/2020 4:41:[address] Brooks Gil @ Sep 24 2020 4:41AM
== END 2020-09-24 04:53 | disposition home or self-care (01) ==
LOC: MW.ED 02:10
DX: J98.01 Acute bronchospasm (principal); Z79.899 Other long term (current) drug therapy; Z91.048 Other nonmedicinal substance allergy status; Z88.8 Allergy status to other drugs, medicaments and biological substances; Z88.5 Allergy status to narcotic agent; Z88.6 Allergy status to analgesic agent
CPT/HCPCS: 71046; 96365; 96375; 99285; J2405; J2920; J3475; 99283

== ENCOUNTER 2020-12-11 06:46 | Emergency (ER) | payer OTHER, BC ==
[2020-12-11] MEDS ORDERED: Acetaminophen 325 MG Tab PO ONE (07:27)
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
--- NOTE | 2020-12-11 08:16 | CR ---
HISTORY: Rolled ankle. TECHNIQUE: Three views right foot. COMPARISON: None. FINDINGS: There is no acute fracture. Joint spaces are preserved. The soft tissues are unremarkable. IMPRESSION: Negative exam of the right foot. Dictated by Ellis Espana MD @ 12/11/2020 8:14:[address] Ellis Espana @ Dec 11 2020 8:14AM
== END 2020-12-11 08:47 | disposition home or self-care (01) ==
LOC: MW.ED 06:46
DX: S93.401A Sprain of unspecified ligament of right ankle, initial encounter (principal); W50.2XXA Accidental twist by another person, initial encounter; Z88.6 Allergy status to analgesic agent; Z88.1 Allergy status to other antibiotic agents; Z79.899 Other long term (current) drug therapy; J45.909 Unspecified asthma, uncomplicated
CPT/HCPCS: 73610; 73630; 99283; A9270

== ENCOUNTER 2021-01-04 14:20 | Emergency (ER) | payer BC, OTHER ==
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
== END 2021-01-04 17:16 | disposition home or self-care (01) ==
LOC: MW.ED 14:20
DX: U07.1 COVID-19 (principal); J45.909 Unspecified asthma, uncomplicated; Z79.899 Other long term (current) drug therapy; Z91.048 Other nonmedicinal substance allergy status; Z88.5 Allergy status to narcotic agent; Z88.6 Allergy status to analgesic agent; Z88.8 Allergy status to other drugs, medicaments and biological substances
CPT/HCPCS: 99283; U0002

== ENCOUNTER 2021-02-02 04:01 | Emergency (ER) | payer BC ==
[2021-02-02] MEDS ORDERED: Famotidine 20 MG/2 ML SDV IVPUSH ONE (04:14)
[2021-02-02] MEDS ORDERED: Sodium Chloride 0.9% 10 ML Syringe FLUSH PRN (04:14)
[2021-02-02] MEDS ORDERED: Sodium Chloride 0.9% 2.5 ML Syringe FLUSH PRN (04:14)
[2021-02-02] MEDS ORDERED: Ondansetron 4 MG/2 ML SDV IVPUSH ONE (04:14)
[2021-02-02] MEDS ORDERED: Lactated Ringers 1,000 ML IV ONE (04:14)
[2021-02-02] MEDS ORDERED: Pantoprazole 40 MG in Sodium Chloride 0.9% 10 ML IV ONE (04:14)
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
[2021-02-02] MEDS ORDERED: Haloperidol Lactate 5 MG/ML SDV IM ONE (04:23)
[2021-02-02 04:57] LABS: BLOOD UREA NITROGEN,BUN 10 mg/dL (7.0-18.0); CARBON DIOXIDE,CO2 26.6 mmol/L (21.0-32.0); CHLORIDE,CL 101 mmol/L (98-107); GLUCOSE RANDOM 121 mg/dL (74-106); LIPASE 101 U/L (73-393); POTASSIUM,K 4.3 mmol/L (3.5-5.1); SODIUM,NA 139 mmol/L (136-145)
--- NOTE | 2021-02-02 05:55 | CR ---
INDICATION: Chest pain. TECHNIQUE: Chest 2 views. COMPARISON: September 24, 2020. FINDINGS: Cardiovascular and mediastinum: Heart size and vasculature are normal in caliber and appearance. Lungs and pleural spaces: Lungs are clear. No sign of infiltrate or mass. No sign of pleural effusion. No pneumothorax. Bones and soft tissues: No significant findings. IMPRESSION: No acute findings and no significant changes from the prior exam. Dictated by Bladimir Bauñelos MD @ 02/02/2021 5:53:58 AM (Electronically Signed)
== END 2021-02-02 06:14 | disposition home or self-care (01) ==
LOC: MW.ED 04:01
DX: K27.9 Peptic ulcer, site unspecified, unspecified as acute or chronic, without hemorrhage or perforation (principal); Z88.5 Allergy status to narcotic agent; Z88.6 Allergy status to analgesic agent; Z79.899 Other long term (current) drug therapy
CPT/HCPCS: 36415; 71045; 80053; 81001; 81025; 83690; 85025; 93005; 96372; 96374; 96375; 99284; C9113; J1630; J2405; J3490; J7120

== ENCOUNTER 2022-11-20 00:11 | Emergency (ER) | payer SELFPAY ==
[2022-11-20] MEDS ORDERED: Sodium Chloride 0.9% 2.5 ML Syringe FLUSH PRN (00:43)
[2022-11-20] MEDS ORDERED: Sodium Chloride 0.9% 10 ML Syringe FLUSH PRN (00:43)
[2022-11-20] MEDS ORDERED: Ondansetron 4 MG/2 ML SDV IVPUSH ONE (00:43)
[2022-11-20] MEDS ORDERED: Sodium Chloride 0.9% 1,000 ML IV ONE (00:43)
[2022-11-20] MEDS ORDERED: Alum Hydro/Mag Hydro/Simeth XS 15 ML, Lidocaine 2% 5 ML PO ONE ×2 (00:45)
[2022-11-20] MEDS ORDERED: Aluminum Hydroxide/Magnesium Hydroxide/Simethicone XS Susp 30 ML Cup ONE (00:51)
[2022-11-20 00:52] LABS: BASOPHILS ABSOLUTE AUTO 0.1 K/uL (0.0-0.1); BASOPHILS PERCENT AUTO 0.6 % (0.0-1.5); EOSINOPHILS ABSOLUTE AUTO 0.3 K/uL (0.0-0.7); EOSINOPHILS PERCENT AUTO 2.5 % (0.0-7.0); HEMATOCRIT 43.5 % (36.0-46.0); HEMOGLOBIN 14.5 g/dL (12.0-16.0); LYMPHOCYTES ABSOLUTE AUTO 4.4 K/uL (0.6-2.4); LYMPHOCYTES PERCENT AUTO 40.8 % (16.0-40.0); MEAN CORPUSCULAR HEMOGLOBIN 27.7 pg (27.0-32.0); MEAN CORPUSCULAR HGB CONC 33.3 g/dL (31.0-37.0); MEAN CORPUSCULAR VOLUME 83.2 fL (80.0-98.0); MONOCYTES ABSOLUTE AUTO 0.9 K/uL (0.0-0.8); MONOCYTES PERCENT AUTO 8.6 % (0.0-15.0); NEUTROPHILS ABSOLUTE AUTO 5.1 K/uL (1.4-5.7); NEUTROPHILS PERCENT AUTO 47.5 % (48.0-80.0); NRBC ABSOLUTE 0 K/uL; PLATELET COUNT,PLT 425 K/uL (150-400); RED BLOOD CELL COUNT 5.23 M/uL (4.30-5.90)
[2022-11-20] MEDS ORDERED: Aluminum Hydroxide/Magnesium Hydroxide/Simethicone XS Susp 30 ML Cup PO STA (00:57)
[2022-11-20 01:02] LABS: APPEARANCE,URINE CLEAR; BILIRUBIN,URINE NEGATIVE (NEGATIVE); GLUCOSE,URINE NEGATIVE (NEGATIVE); KETONES,URINE NEGATIVE (NEGATIVE); LEUKOCYTE ESTERASE,URINE TRACE (NEGATIVE); NITRITE,URINE NEGATIVE (NEGATIVE); OCCULT BLOOD,URINE TRACE-INTACT (NEGATIVE); PH,URINE 5.5 (5.0-8.0); PROTEIN,URINE NEGATIVE (NEGATIVE); UROBILINOGEN,URINE 0.2 EU/dL (<2.0)
[2022-11-20 01:11] LABS: COLOR,URINE COLORLESS
[2022-11-20 01:12] LABS: BACTERIA,URINE FEW (NEGATIVE); EPITHELIAL CELLS,URINE FEW (NONE-FEW); RBC,URINE 0-1 (0-2/HPF); WBC,URINE 0-2 (0-5/HPF)
[2022-11-20 01:13] LABS: A/G RATIO 0.8 (0.9-1.6); ALANINE AMINOTRANSFERASE,ALT 29 IU/L (14-63); ALBUMIN 3.8 g/dL (3.4-5.0); ALKALINE PHOSPHATASE 57 U/L (46-116); ASPARTATE AMNIOTRANSFERASE,AST 15 IU/L (15-37); BILIRUBIN TOTAL 0.3 mg/dL (0.2-1.0); BLOOD UREA NITROGEN,BUN 9 mg/dL (7.0-18.0); CARBON DIOXIDE,CO2 27.1 mmol/L (21.0-32.0); CHLORIDE,CL 102 mmol/L (98-107); CREATININE 0.9 mg/dL (0.6-1.0); EST CRCL DRUG DOSING (CG) 72.86 mL/min; ESTIMATED GFR 86 mL/min (>60); GLUCOSE RANDOM 113 mg/dL (74-106); LIPASE 85 U/L (73-393); POTASSIUM,K 3.5 mmol/L (3.5-5.1); PROTEIN TOTAL,TP 8.4 g/dL (6.4-8.2); SODIUM,NA 141 mmol/L (136-145)
[2022-11-20] MEDS ORDERED: Iopamidol 755 MG/ML 500 ML Multipack Bottle IVPUSH ONE (01:20)
== END 2022-11-20 02:49 | disposition home or self-care (01) ==
LOC: MW.ED 00:11
DX: R07.9 Chest pain, unspecified (principal); J45.909 Unspecified asthma, uncomplicated; Z91.09 Other allergy status, other than to drugs and biological substances; Z88.6 Allergy status to analgesic agent; Z88.8 Allergy status to other drugs, medicaments and biological substances; Z88.5 Allergy status to narcotic agent; Z79.51 Long term (current) use of inhaled steroids
CPT/HCPCS: 36415; 71275; 80053; 81001; 83690; 84443; 84484; 84703; 85025; 85379; 87086; 93005; 96374; 99285; A9270; J2405; J3490; J7030; Q9967; 93010; 99284